=== PATIENT | male | born 1960 | race Caucasian/White ===

== ENCOUNTER 2024-01-25 21:38 | Inpatient (IN) | payer OTHER, SELFPAY ==
[2024-01-25 17:34] VITALS: BP 135/77
--- NOTE | 2024-01-25 17:52 | ED.GENMED ---
History of Present Illness
General
Chief Complaint: Breathing Problem
Source: patient
Time Seen by Provider: 01/25/24 17:37
History of Present Illness
History of Present Illness:
63-year-old male longtime smoker with history of asthma presents complaining of progressively worsening shortness of breath with fatigue and cough. He notes chills. No vomiting. No other complaints. Is 88% on EMS arrival and was brought here on
a nonrebreather. Denies any chest pain
Phy Exam
Physical Exam
Physical Exam:
General: Well-developed male with increased work of breathing HEENT: Normocephalic atraumatic neck is supple
Heart: Tachycardic but regular
Lungs: Diffuse inspiratory expiratory wheeze. Subtle rales at the bases.
Extremities: No cyanosis or edema
Abdomen soft nontender nondistended no guarding rebound
Scores
Heart Failure Risk
Heart Failure Risk Score: Not Applicable
Sepsis
Sepsis Screening
Sepsis Assessment: Sepsis
Sepsis Screen
Sepsis Screen: Sepsis
Date: 01/25/24
Time: 20:55
Course
Orders/Labs/Results
Orders:
Orders
01/25/24 17:48
0.9% Sodium Chloride 1000 ml [Nss] 1,000 ml IV BOLUS
Acetaminophen [Tylenol] 1,000 mg PO NOW STA
Ipratropium/Albuterol Sulfate [Duoneb] 3 ml INH R NOW STA
01/25/24 17:49
CR Chest - 2 Views Urgent
Comment:
Reason For Exam: cough, fever
01/25/24 18:07
Complete Blood Count/With Diff Urgent
Comprehensive Metabolic Panel Urgent
Blood Culture Q30M
JOVANI Source: Blood/Venous
Specimen Description:
Blood Culture Q30M
JOVANI Source: Blood/Venous
Specimen Description:
01/25/24 18:08
COVID-19 Antigen Urgent
Source: Nasal Swab
Lactic Acid Q4H
Comment: CANCEL 2nd LACTIC ACID IF 1st LACTIC ACID IS LESS THAN 2
Influenza A+B Rapid Molecular Urgent
JOVANI Source: Nasal Swab
Specimen Description:
01/25/24 20:50
Azithromycin 500 mg/250 ml [Zithromax Infusion] 500 mg in 250 ml IV NOW
CefTRIAXone [Rocephin] 1,000 mg IV NOW STA
Abnormal Lab Results
01/25/24
18:07
WBC 15.7 H 10^3/uL
(4.8-10.8)
Hgb 18.7 H g/dL
(13.0-18.0)
Hct 55.9 H %
(39.0-52.0)
MCH 31.4 H pg
(27.0-31.0)
Abs Immat Gran (auto) 0.1 H 10^3/uL
(0-0.05)
Absolute Neuts (auto) 13.3 H 10^3/uL
(1.4-6.5)
Absolute Lymphs (auto) 0.8 L 10^3/uL
(1.2-3.4)
Absolute Monos (auto) 1.5 H 10^3/uL
(0.1-0.6)
Neutrophils % 84.6 H %
(42.2-75.2)
Lymphocytes % 5.2 L %
(20.5-51.1)
Potassium 5.2 H mmol/L
(3.5-5.1)
Chloride 97 L mmol/L
(98-107)
Carbon Dioxide 32 H mmol/L
(22-30)
Glucose 123 H mg/dl
(70-99)
Total Bilirubin 2.0 H mg/dl
(0.2-1.3)
Total Protein 8.8 H g/dl
(6.3-8.2)
01/25/24 18:07
01/25/24 18:07
Vital Signs
Initial and Last Documented VS:
Initial Vital Signs
Temp Pulse Resp BP Pulse Ox
102.7 F H 117 20 135/77 90
01/25/24 17:34 01/25/24 17:34 01/25/24 17:34 01/25/24 17:34 01/25/24 17:34
Last Documented Vital Signs
Temp Pulse Resp BP Pulse Ox
102.7 F H 117 20 135/77 90
01/25/24 17:34 01/25/24 17:34 01/25/24 17:34 01/25/24 17:34 01/25/24 17:34
MDM/Problems Addressed
Differential Diagnosis Includes:
Respiratory difficulty. Patient is tachycardic and febrile at triage. Consider acute bronchitis versus COVID versus flu versus pneumonia versus sepsis
Tylenol ordered fluids ordered cultures and lactic acid pending. Will check chest x-ray COVID and flu test and labs. DuoNeb ordered as well
*Critical Care Note
Total Time (30-74mins, 75-104mins- exclusive of procedures): Not Applicable
Update Note
Update Note:
Chest x-ray concerning for right lower lobe pneumonia. Given leukocytosis, tachycardia fever and hypoxia will admit to hospital for sepsis secondary to pneumonia.
Fluids ordered Rocephin Zithromax ordered.
ED Attending Note
-
Portions of this chart may have been created with voice recognition software.� Occasional wrong word or��sound alike� substitutions may have occurred due to the inherent limitations of voice recognition software.
Discharge Plan
Departure
Patient Disposition: Admit
Date of Disposition: 01/25/24
Time of Disposition: 20:53
Admit to: Telemetry
Presentation/result/management discussed w/ accepting MD/DO: Hospitalist
Discharge Problem:
Sepsis, Pneumonia
Referrals:
UNKNOWN - PT DOES,NOT KNOW [Family Provider] -
Interventions
Interventions:
*Risk Screen - Suicide Last Done: 01/25/24 18:03
*General Assessment Last Done: 01/25/24 18:03
*Neglect/Abuse Screening Last Done: 01/25/24 18:03
ED- Fall Risk Assessment Last Done: 01/25/24 18:03
*ED COVID-19 Vaccine History Last Done: 01/25/24 18:03
ED- Cardiac Assessment Last Done: 01/25/24 18:03
ED- Pulmonary Assessment Last Done: 01/25/24 18:03
Discharge Date and Time
Print Language: MACEDONIAN
[2024-01-25] MEDS: TYLENOL 1000 MG PO (17:58)
[2024-01-25] MEDS: DUONEB 3 ML INH (17:59)
[2024-01-25] MEDS: NSS 1000 IV ×3 (18:02→23:18)
[2024-01-25 18:16] LABS: % Basophils 0.2 % (0-2); % Eosinophils 0.4 % (0-6); % Immature Granulocytes 0.4 % (0-0.5); % Lymphocytes 5.2 % (20.5-51.1); % Monocytes 9.2 % (1.7-9.3); % Neutrophils 84.6 % (42.2-75.2); Absolute Eosinophils 0.1 10^3/uL (0-0.7); Absolute Immature Granulocytes 0.1 10^3/uL (0-0.05); Absolute Lymphocytes 0.8 10^3/uL (1.2-3.4); Absolute Monocytes 1.5 10^3/uL (0.1-0.6); Absolute Neutrophils 13.3 10^3/uL (1.4-6.5); Hematocrit 55.9 % (39.0-52.0); Hemoglobin 18.7 g/dL (13.0-18.0); Mean Corp Hgb Conc. 33.5 g/dL (33.0-37.0); Mean Corpuscular Hgb 31.4 pg (27.0-31.0); Mean Corpuscular Volume 93.8 fL (80.0-94.0); Mean Platelet Volume 10.2 fL (7.4-10.4); Nucleated Red Blood Cells % 0 % (-); Platelet Count 199 10^3/uL (130-400); Red Blood Cell Count 5.96 10^6/uL (4.70-6.10); Red Cell Dist. Width 11.8 % (11.5-14.5); White Blood Cell Count 15.7 10^3/uL (4.8-10.8)
[2024-01-25 18:19] VITALS: BMI 25.0
[2024-01-25 18:28] LABS: Lactic Acid 1.6 mmol/L (0.7-2.0)
[2024-01-25 18:33] LABS: ALT (SGPT) 34 U/L (0-50); AST (SGOT) 37 U/L (17-59); Albumin 4.8 g/dl (3.5-5.0); Alkaline Phosphatase 83 U/L (38-126); Blood Urea Nitrogen 16 mg/dl (9-20); Calcium 9.9 mg/dl (8.4-10.2); Carbon Dioxide 32 mmol/L (22-30); Chloride 97 mmol/L (98-107); Estimated Creatinine Clearance 102 ml/min; Glucose 123 mg/dl (70-99); Potassium 5.2 mmol/L (3.5-5.1); Sodium 137 mmol/L (135-145); Total Protein 8.8 g/dl (6.3-8.2); eGFR > 60.00
[2024-01-25 18:33] LABS: COVID-19 Antigen Negative (Negative)
[2024-01-25 19:00] VITALS: BP 123/99
[2024-01-25 20:00] VITALS: BP 124/76
[2024-01-25 21:00] VITALS: BP 130/74
[2024-01-25] MEDS: ROCEPHIN 1000 MG IV (21:06)
[2024-01-25] MEDS: ZITHROMAX INFUSION 250 IV (21:17)
--- NOTE | 2024-01-25 21:27 | EDRN ---
Pt says he smoked 1 ppd for 40 years. Pt diagnosed with COPD in August. Pt's was recently ill with URI. Pt says he has 'felt like crap' for couple days. Pt is always sob but notes it has gotten worse in past couple days. Pt with cough
productive of green mucus. Pt does not wear O2 at home. Pt has felt chilled. No cp, abd pain, n/v, urinary symptoms, weakness, dizziness. Prior to this RN's assessment and him going to [facility], pt's IV site reportedly infiltrated. Elier Amaro NP
removed IV and applied pressure dressing. Pt noted with approximately 5 dressings on both arms. Pt said he had to be stuck multiple times and two of the IVs stopped working and had to be removed. This RN inserted #20g R wrist without difficulty
and remaining NS bolus from initial order reconnected and finished at 2115.
--- NOTE | 2024-01-25 21:35 | HPS.HSE ---
Family Physician
-
Family Physician: NOT KNOW UNKNOWN - PT DOES
Chief Complaint
-
shortness of breath
History of Present Illness
63-year-old male past medical history of COPD, current smoker, BPH, presenting with worsening shortness of breath with productive cough, over the past few days. He has fevers and chills. Denies sore throat or runny nose. Denies chest pain.
Denies nausea or vomiting or diarrhea. His had similar symptoms and has improved.
Patient smoked for 40 years and continues to smoke 1 pack of cigarettes per day. He denies alcohol use.
Medical History
Past Medical History
Past Medical History: Reports Other (COPD, current smoker, BPH )
Past Surgical History: Reports None
Social History
Tobacco: Smoker
Alcohol: None
Drug: None
Family History
Family History: Not pertinent
Allergies / Home Medications
Allergies reflects when Allergies were last updated in [facility].
Home Medications with original date entered in [facility]
Allergy/Medication List:
Allergies
Allergy/AdvReac Type Severity Reaction Status Date / Time
aspirin AdvReac Unknown Vomiting Verified 01/25/24 17:34
Home Medications
Trelegy Ellipta 1 puff inhalation DAILY 01/25/24
fexofenadine-pseudoephedrine ER 180 mg-240 mg tablet,ext.release 24 hr (Latesha-D 24 Hour) 1 tab PO DAILY 01/25/24
tamsulosin 0.4 mg capsule (Flomax) 0.4 mg PO DAILY 01/25/24
Review of Systems
-
History Source: Patient
A 12 point ROS was completed and negative except as noted: Yes
Constitutional: Reports No Symptoms
EENT: Reports No Symptoms
Respiratory: Reports See HPI
Cardiac: Reports No Symptoms
Abdomen/GI: Reports No Symptoms
: Reports No Symptoms
Musculoskeletal: Reports No Symptoms
Skin: Reports No Symptoms
Neurological: Reports No Symptoms
Endocrine: Reports No Symptoms
Hematologic/Lymphatic: Reports No Symptoms
Psych: Reports No Symptoms
Physical Exam
Vital Signs
Vital Signs
Temp Pulse Resp BP Pulse Ox
100 F 102 14 130/74 92
01/25/24 20:57 01/25/24 21:00 01/25/24 21:00 01/25/24 21:00 01/25/24 21:00
Physical Exam
General: Well Developed, Well Nourished and No Apparent Distress
HEENT: NormoCephalic, Moist mucous membranes and Atraumatic
Respiratory: Wheezes and Rhonchi
Cardiac: S1/S2 and Regular Rhythm; No Murmur or Rub
GI: Soft, Non Tender, Non Distended and Normal Bowel Sounds; No Organomegaly
Rectal: Deferred by Provider
Musculoskeletal: No Clubbing, No Cyanosis and No Edema
Skin: No Rash
Neuro: Nonfocal/grossly intact
Laboratory Results
-
01/25/24 18:07
01/25/24 18:07
Laboratory Results
Lactic Acid Cancelled 01/25/24 22:00
Total Bilirubin 2.0 mg/dl (0.2-1.3) H 01/25/24 18:07
AST 37 U/L (17-59) 01/25/24 18:07
ALT 34 U/L (0-50) 01/25/24 18:07
Alkaline Phosphatase 83 U/L (38-126) 01/25/24 18:07
Data Reviewed
-
Lab Data: Labs Reviewed by me
Old Records: Reviewed
Impression/Plan
-
IMPRESSION:
PLAN:
# Sepsis (leukocytosis, fever, tachycardia, tachypnea) secondary to right lower lobe pneumonia
-COVID and influenza negative
-Blood cultures pending
-Check sputum culture
-IV fluids
-Ceftriaxone/azithromycin
# Acute COPD exacerbation
-Bilateral wheezing, rhonchi on examination
-DuoNebs every 6 hours
-Dexamethasone 4 mg every 12
-mucinex
-hold trelegy ellipta
# Hyperkalemia likely secondary to hypovolemia
-Monitor with IV fluids
Current smoker
-Nicotine patch
BPH
-Continue tamsulosin
Full code
DVT prophylaxis�heparin
Regular diet
[2024-01-25 22:30] VITALS: BP 142/82; BMI 25.0
[2024-01-25] MEDS: MORPHINE SULFATE 2 MG IV (23:13)
[2024-01-25] MEDS: DECADRON 4 MG IV (23:14)
[2024-01-26 03:44] VITALS: BP 129/69
[2024-01-26 07:18] VITALS: BP 129/87
[2024-01-26] MEDS: DUONEB 3 ML INH ×4 (07:25→19:04)
[2024-01-26 07:45] LABS: % Basophils 0.1 % (0-2); % Immature Granulocytes 0.6 % (0-0.5); % Lymphocytes 4.2 % (20.5-51.1); % Monocytes 4.2 % (1.7-9.3); % Neutrophils 90.9 % (42.2-75.2); Absolute Immature Granulocytes 0.1 10^3/uL (0-0.05); Absolute Lymphocytes 0.9 10^3/uL (1.2-3.4); Absolute Monocytes 0.9 10^3/uL (0.1-0.6); Absolute Neutrophils 18.7 10^3/uL (1.4-6.5); Hematocrit 49.8 % (39.0-52.0); Hemoglobin 16.4 g/dL (13.0-18.0); Mean Corp Hgb Conc. 32.9 g/dL (33.0-37.0); Mean Corpuscular Hgb 31.2 pg (27.0-31.0); Mean Corpuscular Volume 94.9 fL (80.0-94.0); Mean Platelet Volume 10.4 fL (7.4-10.4); Nucleated Red Blood Cells % 0 % (-); Platelet Count 196 10^3/uL (130-400); Red Blood Cell Count 5.25 10^6/uL (4.70-6.10); Red Cell Dist. Width 11.8 % (11.5-14.5); White Blood Cell Count 20.6 10^3/uL (4.8-10.8)
[2024-01-26 08:10] LABS: Blood Urea Nitrogen 14 mg/dl (9-20); Calcium 8.9 mg/dl (8.4-10.2); Carbon Dioxide 28 mmol/L (22-30); Chloride 103 mmol/L (98-107); Estimated Creatinine Clearance 117 ml/min; Glucose 130 mg/dl (70-99); Potassium 4.8 mmol/L (3.5-5.1); Sodium 140 mmol/L (135-145); eGFR > 60.00
[2024-01-26] MEDS: FLOMAX 0.4 MG PO (08:30)
[2024-01-26] MEDS: CLARITIN 10 MG PO (08:30)
[2024-01-26] MEDS: MUCINEX 1200 MG PO ×2 (08:30→20:44)
[2024-01-26] MEDS: HEPARIN 5000 UNITS SC (08:30)
[2024-01-26] MEDS: SUDAFED 12 HOUR (EXTENDED RELEASE) 240 MG PO (08:31)
[2024-01-26] MEDS: NICODERM TRANSDERMAL 14 MG TRANSDERM (08:31)
[2024-01-26] MEDS: NSS 1000 IV (08:32)
[2024-01-26 10:59] VITALS: BP 127/83
[2024-01-26] MEDS: DECADRON 4 MG IV (11:10)
[2024-01-26] MEDS: ZITHROMAX 500 MG PO (11:10)
--- NOTE | 2024-01-26 11:19 | W.PN.HOSP.TC ---
Today's Communication/Plan
-
Increase steroids
Continue with antibiotic
Follow-up on the culture data
DC fluids
Assessment / Plan
Assessment / Plan
# Sepsis (leukocytosis, fever, tachycardia, tachypnea) secondary to right lower lobe pneumonia
-COVID and influenza negative
-Blood cultures pending
-Check sputum culture in lab
-DC IVF.
-Ceftriaxone/azithromycin
# Acute suspected COPD exacerbation
-DuoNebs every 6 hours
-Dexamethasone 6 mg every 12
-mucinex
-hold trelegy ellipta
# Acute hypoxic respiratory insufficiency likely combination of pneumonia and suspected COPD exacerbation
-Wean oxygen as tolerated. Needs treatment plan as above.
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
# Hyperkalemia
-resolved
#Daily tobacco abuse
#Active Smoker 1 pack a day
-Nicotine patch
-Counseled on complete cessation. Patient said he will stop smoking moving forward.
BPH
-Continue tamsulosin
Full code
DVT prophylaxis�lovenox
Anticipated Discharge: > 48 hours
Subjective/Interval History
-
Date of Service: January 26, 2024
states feels sob
remains with severe cough
Objective Data
-
Labs:
Laboratory Results
01/26/24
07:04
WBC 20.6 H
Hgb 16.4
Hct 49.8
Plt Count 196
Sodium 140
Potassium 4.8
Chloride 103
Carbon Dioxide 28
BUN 14
Creatinine 0.7
Glucose 130 H
Calcium 8.9
Vital Signs:
Vital Signs
Temp Pulse Resp BP Pulse Ox
97.9 F 100 17 127/83 93
01/26/24 10:59 01/26/24 10:59 01/26/24 10:59 01/26/24 10:59 01/26/24 10:59
I&O
01/25/24 01/26/24 01/27/24
06:59 06:59 06:59
Intake Total 480 / 480
Output Total 200 / 200
Balance 280 / 280
Physical Exam
-
General: Well Developed and No Apparent Distress
HEENT: Normocephalic, Atraumatic and Moist Mucous Membranes
Respiratory: Wheezes
Cardiac: Regular Rhythm and S1/S2; Negative Murmur, Rub or Gallop
GI: Soft, Nontender, Nondistended and Normal Bowel Sounds; Negative Organomegaly
Rectal: Deferred by Provider
Musculoskeletal: No Clubbing, No Cyanosis and No Edema
Skin: Negative Rash
Neuro: Awake, Alert, Oriented, AO x 3, No Motor Deficits and Nonfocal/Grossly Intact
Psych: Calm
Data Reviewed
-
Total Time Spent with Patient (in minutes): 55
[2024-01-26] MEDS: DECADRON IV (11:57)
--- NOTE | 2024-01-26 13:52 | CM ---
Patient seen at bedside with
IA completed.
CM contacted [facility] who states [facility] & was verified.
Dx: Sepsis, pneumonia, COPD exac
PMH: COPD, 1PPD smoker x 40 yrs, BPH
Patient lives in a multistory home with .
PLOF: Independent, does not use AD
DME: Denies
Denies insecurities
Denies HH/Rehab
[facility] - [facility] left [facility]
PLAN: Home, currently no needs anticipated
[2024-01-26 15:31] VITALS: BP 114/72
[2024-01-26 19:37] VITALS: BP 132/66
[2024-01-26] MEDS: ROCEPHIN 1000 MG IV (20:42)
[2024-01-26] MEDS: HEPARIN SC (20:43)
[2024-01-26] MEDS: STERILE WATER FOR INJECTION 10 ML IV (20:44)
[2024-01-26] MEDS: DECADRON 6 MG IV (23:24)
[2024-01-26 23:39] VITALS: BP 119/57
[2024-01-27 03:47] VITALS: BP 130/76
[2024-01-27 07:00] VITALS: BP 136/89
[2024-01-27 07:32] LABS: % Immature Granulocytes 0.6 % (0-0.5); % Lymphocytes 4.8 % (20.5-51.1); % Monocytes 2.9 % (1.7-9.3); % Neutrophils 91.7 % (42.2-75.2); Absolute Immature Granulocytes 0.1 10^3/uL (0-0.05); Absolute Monocytes 0.6 10^3/uL (0.1-0.6); Absolute Neutrophils 18.8 10^3/uL (1.4-6.5); Hematocrit 44.6 % (39.0-52.0); Hemoglobin 15.5 g/dL (13.0-18.0); Mean Corp Hgb Conc. 34.8 g/dL (33.0-37.0); Mean Corpuscular Hgb 31.5 pg (27.0-31.0); Mean Corpuscular Volume 90.7 fL (80.0-94.0); Mean Platelet Volume 10.7 fL (7.4-10.4); Nucleated Red Blood Cells % 0 % (-); Platelet Count 190 10^3/uL (130-400); Red Blood Cell Count 4.92 10^6/uL (4.70-6.10); Red Cell Dist. Width 11.9 % (11.5-14.5); White Blood Cell Count 20.5 10^3/uL (4.8-10.8)
[2024-01-27] MEDS: DUONEB 3 ML INH ×4 (07:38→19:48)
[2024-01-27 07:50] LABS: Blood Urea Nitrogen 16 mg/dl (9-20); Calcium 9.4 mg/dl (8.4-10.2); Carbon Dioxide 26 mmol/L (22-30); Chloride 107 mmol/L (98-107); Estimated Creatinine Clearance 117 ml/min; Glucose 128 mg/dl (70-99); Potassium 4.1 mmol/L (3.5-5.1); Sodium 143 mmol/L (135-145); eGFR > 60.00
[2024-01-27] MEDS: ZITHROMAX 500 MG PO (08:23)
[2024-01-27] MEDS: CLARITIN 10 MG PO (08:23)
[2024-01-27] MEDS: FLOMAX 0.4 MG PO (08:23)
[2024-01-27] MEDS: MUCINEX 1200 MG PO ×2 (08:23→19:59)
[2024-01-27] MEDS: NICODERM TRANSDERMAL TRANSDERM (08:26)
[2024-01-27] MEDS: HEPARIN SC (08:26)
[2024-01-27 11:00] VITALS: BP 148/91
--- NOTE | 2024-01-27 11:47 | W.PN.HOSP.TC ---
Today's Communication/Plan
-
cont with IV steroids
Cont with IV abx
BC
Wean o2
if no improvement can consider pulm eval
Assessment / Plan
Assessment / Plan
General: Well Developed and No Apparent Distress
HEENT: Normocephalic, Atraumatic and Moist Mucous Membranes
Respiratory: Wheezes b/l exp, oxygen
Cardiac: Regular Rhythm and S1/S2; Negative Murmur, Rub or Gallop
GI: Soft, Nontender, Nondistended and Normal Bowel Sounds; Negative Organomegaly
Musculoskeletal: No Clubbing, No Cyanosis and No Edema
Skin: Negative Rash
Neuro: Awake, Alert, Oriented, AO x 3, No Motor Deficits and Nonfocal/Grossly Intact
Psych: Calm
# Sepsis (leukocytosis, fever, tachycardia, tachypnea) secondary to right lower lobe pneumonia
-COVID and influenza negative
-Blood cultures neg so far
-Check sputum culture in lab -usual margaret
-DC IVF.
-Ceftriaxone/azithromycin
-repeat CXR in 4-6 week to assess for resolution
# Acute suspected COPD exacerbation
-DuoNebs every 6 hours
-Dexamethasone 6 mg every 12
-mucinex
-hold trelegy ellipta
# Acute hypoxic respiratory insufficiency likely combination of pneumonia and suspected COPD exacerbation
-Wean oxygen as tolerated. see individual treatment plan as above.
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
# Hyperkalemia
-resolved
#Daily tobacco abuse
#Active Smoker 1 pack a day
-Nicotine patch
-Counseled on complete cessation. Patient said he will stop smoking moving forward.
BPH
-Continue tamsulosin
Full code
DVT prophylaxis�lovenox
Anticipated Discharge: > 48 hours
Subjective/Interval History
-
Date of Service: January 27, 2024
states still feeling sob with exertion
having cough after nebs
Objective Data
-
Labs:
Laboratory Results
01/27/24
06:47
WBC 20.5 H
Hgb 15.5
Hct 44.6
Plt Count 190
Sodium 143
Potassium 4.1
Chloride 107
Carbon Dioxide 26
BUN 16
Creatinine 0.7
Glucose 128 H
Calcium 9.4
Vital Signs:
Vital Signs
Temp Pulse Resp BP Pulse Ox
98.1 F 115 18 148/91 95
01/27/24 11:00 01/27/24 11:40 01/27/24 11:40 01/27/24 11:00 01/27/24 11:40
I&O
01/26/24 01/27/24 01/28/24
06:59 06:59 06:59
Intake Total 480 / 480 1620 / 1620
Output Total 200 / 200
Balance 280 / 280 1620 / 1620
Data Reviewed
-
Total Time Spent with Patient (in minutes): 55
--- NOTE | 2024-01-27 12:43 | CM ---
Patient chart reviewed.
IV abx, IV steroids
Per nursing on 02
PLAN: home, currently no needs anticipated
[2024-01-27] MEDS: DECADRON 6 MG IV ×2 (13:09→23:55)
[2024-01-27 15:05] VITALS: BP 146/90
--- NOTE | 2024-01-27 18:41 | PTCARENOTE ---
pt refusing Levonox and Heparin, DR Omer made aware.
[2024-01-27 19:28] VITALS: BP 141/83
[2024-01-27] MEDS: ROCEPHIN 1000 MG IV (20:00)
[2024-01-27] MEDS: STERILE WATER FOR INJECTION 10 ML IV (20:00)
[2024-01-27 23:14] VITALS: BP 123/81
[2024-01-28 03:36] VITALS: BP 145/90
[2024-01-28 07:00] VITALS: BP 152/94
[2024-01-28] MEDS: DUONEB 3 ML INH ×4 (07:28→20:12)
[2024-01-28] MEDS: CLARITIN 10 MG PO (07:58)
[2024-01-28] MEDS: NICODERM TRANSDERMAL 14 MG TRANSDERM (07:58)
[2024-01-28] MEDS: FLOMAX 0.4 MG PO (07:58)
[2024-01-28] MEDS: MUCINEX 1200 MG PO ×2 (07:58→19:45)
[2024-01-28] MEDS: ZITHROMAX 500 MG PO (07:58)
[2024-01-28 08:36] LABS: % Basophils 0.1 % (0-2); % Immature Granulocytes 0.5 % (0-0.5); % Lymphocytes 4.6 % (20.5-51.1); % Monocytes 2.6 % (1.7-9.3); % Neutrophils 92.2 % (42.2-75.2); Absolute Immature Granulocytes 0.1 10^3/uL (0-0.05); Absolute Lymphocytes 0.9 10^3/uL (1.2-3.4); Absolute Monocytes 0.5 10^3/uL (0.1-0.6); Absolute Neutrophils 17.1 10^3/uL (1.4-6.5); Hematocrit 47.9 % (39.0-52.0); Hemoglobin 16.3 g/dL (13.0-18.0); Mean Corpuscular Hgb 31.6 pg (27.0-31.0); Mean Corpuscular Volume 92.8 fL (80.0-94.0); Mean Platelet Volume 10.7 fL (7.4-10.4); Nucleated Red Blood Cells % 0 % (-); Platelet Count 235 10^3/uL (130-400); Red Blood Cell Count 5.16 10^6/uL (4.70-6.10); Red Cell Dist. Width 11.9 % (11.5-14.5); White Blood Cell Count 18.5 10^3/uL (4.8-10.8)
[2024-01-28 11:00] VITALS: BP 140/83
--- NOTE | 2024-01-28 11:05 | W.PN.HOSP.TC ---
Today's Communication/Plan
-
Continue antibiotic
Continue with steroids
Continue with bronchodilators
Check CT chest
Assessment / Plan
Assessment / Plan
General: Well Developed and No Apparent Distress
HEENT: Normocephalic, Atraumatic and Moist Mucous Membranes
Respiratory: Wheezes b/l exp, oxygen improving- oxygen
Cardiac: Regular Rhythm and S1/S2; Negative Murmur, Rub or Gallop
GI: Soft, Nontender, Nondistended and Normal Bowel Sounds; Negative Organomegaly
Musculoskeletal: No Clubbing, No Cyanosis and No Edema
Skin: Negative Rash
Neuro: Awake, Alert, Oriented, AO x 3, No Motor Deficits and Nonfocal/Grossly Intact
Psych: Calm
# Sepsis (leukocytosis, fever, tachycardia, tachypnea) secondary to right lower lobe pneumonia
-COVID and influenza negative
-Blood cultures neg so far
-Check sputum culture in lab -usual margaret
-DC IVF.
-Ceftriaxone/azithromycin
-repeat CXR in 4-6 week to assess for resolution
# Acute suspected COPD exacerbation
-DuoNebs every 6 hours
-Dexamethasone 6 mg every 12-can probably de-escalate next 24 hours
-mucinex
-hold trelegy ellipta
# Acute hypoxic respiratory insufficiency likely combination of pneumonia and suspected COPD exacerbation
-Wean oxygen as tolerated. see individual treatment plan as above.
-Check CT PE study with tachycardia persistent and shortness of breath
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
# Hyperkalemia
-resolved
#Daily tobacco abuse
#Active Smoker 1 pack a day
-Nicotine patch
-Counseled on complete cessation. Patient said he will stop smoking moving forward.
BPH
-Continue tamsulosin
Full code
DVT prophylaxis�lovenox
Anticipated Discharge: 24 - 48 hours
Subjective/Interval History
-
Date of Service: January 28, 2024
Patient with tachycardia
States of productive cough
Remains on oxygen
Objective Data
-
Labs:
Laboratory Results
01/28/24 01/28/24
06:49 09:53
WBC 18.5 H
Hgb 16.3
Hct 47.9
Plt Count 235 D
Sodium Cancelled Pending
Potassium Cancelled Pending
Chloride Cancelled Pending
Carbon Dioxide Cancelled Pending
BUN Cancelled Pending
Creatinine Cancelled Pending
Glucose Cancelled Pending
Calcium Cancelled Pending
Vital Signs:
Vital Signs
Temp Pulse Resp BP Pulse Ox
97.3 F 108 18 152/94 100
01/28/24 07:00 01/28/24 07:30 01/28/24 07:30 01/28/24 07:00 01/28/24 08:31
I&O
01/27/24 01/28/24 01/29/24
06:59 06:59 06:59
Intake Total 1620 / 1620 1420 / 1420
Balance 1620 / 1620 1420 / 1420
Data Reviewed
-
Total Time Spent with Patient (in minutes): 56
[2024-01-28 11:24] LABS: Blood Urea Nitrogen 19 mg/dl (9-20); Calcium 9.8 mg/dl (8.4-10.2); Carbon Dioxide 30 mmol/L (22-30); Chloride 103 mmol/L (98-107); Estimated Creatinine Clearance 117 ml/min; Glucose 153 mg/dl (70-99); Potassium 3.9 mmol/L (3.5-5.1); Sodium 141 mmol/L (135-145); eGFR > 60.00
[2024-01-28] MEDS: DECADRON 6 MG IV (11:41)
--- NOTE | 2024-01-28 13:34 | W.PN.UPDATE ---
Update Note
Progress Note Update
Patient underwent CT chest PE study which by radiology suspected pulmonary embolism versus artifact in the proximal portion of the left lower lobe pulmonary artery. This was relayed to the patient
Discussed with radiology recommend repeat CT chest after IV hydration
Patient agreeable to take Lovenox injections. Start 80mg every 12
Will ask pulmonary input
--- NOTE | 2024-01-28 13:46 | CM ---
Patient seen at bedside.
CT scan chest PE study today
Pulmonary consult
Cont on 2L 02
PLAN: home, CM to follow for needs
will transport
[2024-01-28] MEDS: NSS 1000 IV (13:49)
[2024-01-28] MEDS: LOVENOX 80 MG SC (13:49)
[2024-01-28 15:04] VITALS: BP 132/86
[2024-01-28 19:27] VITALS: BP 147/85
[2024-01-28] MEDS: ROCEPHIN 1000 MG IV (19:46)
[2024-01-28] MEDS: STERILE WATER FOR INJECTION 10 ML IV (19:46)
[2024-01-28] MEDS: MELATONIN 3 MG PO (22:07)
[2024-01-28 23:08] VITALS: BP 129/76
[2024-01-29] VITALS (7 sets, daily range): BP systolic 141–154; BP diastolic 81–98
[2024-01-29] MEDS: NSS 1000 IV ×2 (00:32→12:48)
[2024-01-29] MEDS: DECADRON 6 MG IV (00:33)
[2024-01-29] MEDS: LOVENOX 80 MG SC (01:52)
[2024-01-29] MEDS: DUONEB 3 ML INH ×4 (07:41→19:56)
[2024-01-29] MEDS: ZITHROMAX 500 MG PO (08:16)
[2024-01-29] MEDS: CLARITIN 10 MG PO (08:16)
[2024-01-29] MEDS: FLOMAX 0.4 MG PO (08:16)
[2024-01-29] MEDS: NICODERM TRANSDERMAL 14 MG TRANSDERM (08:17)
[2024-01-29] MEDS: MUCINEX 1200 MG PO ×2 (08:17→19:42)
[2024-01-29 08:37] LABS: % Basophils 0.1 % (0-2); % Immature Granulocytes 0.8 % (0-0.5); % Lymphocytes 7.4 % (20.5-51.1); % Monocytes 3.2 % (1.7-9.3); % Neutrophils 88.5 % (42.2-75.2); Absolute Immature Granulocytes 0.1 10^3/uL (0-0.05); Absolute Monocytes 0.4 10^3/uL (0.1-0.6); Absolute Neutrophils 11.5 10^3/uL (1.4-6.5); Hematocrit 44.8 % (39.0-52.0); Hemoglobin 15.2 g/dL (13.0-18.0); Mean Corp Hgb Conc. 33.9 g/dL (33.0-37.0); Mean Corpuscular Hgb 31.5 pg (27.0-31.0); Mean Corpuscular Volume 92.8 fL (80.0-94.0); Mean Platelet Volume 10.7 fL (7.4-10.4); Nucleated Red Blood Cells % 0 % (-); Platelet Count 223 10^3/uL (130-400); Red Blood Cell Count 4.83 10^6/uL (4.70-6.10); Red Cell Dist. Width 11.8 % (11.5-14.5)
[2024-01-29 09:30] LABS: Blood Urea Nitrogen 18 mg/dl (9-20); Calcium 9.4 mg/dl (8.4-10.2); Carbon Dioxide 25 mmol/L (22-30); Chloride 106 mmol/L (98-107); Estimated Creatinine Clearance > 125 ml/min; Glucose 110 mg/dl (70-99); Potassium 4.4 mmol/L (3.5-5.1); Sodium 139 mmol/L (135-145); eGFR > 60.00
--- NOTE | 2024-01-29 10:15 | W.PN.HOSP.TC ---
Today's Communication/Plan
-
IV steroids
IV abx
IVF
Pulm eval
wean o2
will require home o2 eval prior to dc
Assessment / Plan
Assessment / Plan
General: Well Developed and No Apparent Distress
HEENT: Normocephalic, Atraumatic and Moist Mucous Membranes
Respiratory: Wheezes b/l exp, oxygen improving- oxygen
Cardiac: Regular Rhythm and S1/S2; Negative Murmur, Rub or Gallop
GI: Soft, Nontender, Nondistended and Normal Bowel Sounds; Negative Organomegaly
Musculoskeletal: No Clubbing, No Cyanosis and No Edema
Skin: Negative Rash
Neuro: Awake, Alert, Oriented, AO x 3, No Motor Deficits and Nonfocal/Grossly Intact
Psych: Calm
# Sepsis (leukocytosis, fever, tachycardia, tachypnea) secondary to right lower lobe pneumonia
-COVID and influenza negative
-Blood cultures neg so far
-Check sputum culture in lab -usual margaret
-DC IVF.
-Ceftriaxone/azithromycin complete 5d course
-repeat CXR in 4-6 week to assess for resolution
# Acute suspected COPD exacerbation
-DuoNebs every 6 hours
-Dexamethasone dose decreased further to 4mg q12h
-mucinex
-hold trelegy ellipta
-Pulm eval- would benefit from close pulmonary follow up on discharge. Patient verbalized understanding
# Acute hypoxic respiratory insufficiency likely combination of pneumonia and suspected COPD exacerbation
-Wean oxygen as tolerated. see individual treatment plan as above.
#Suspected PE LLL vs. artifact
-d/w with radiology recommending repeat CT chest.
-started on prophylactic Lovenox therapeutic dose
-IVF started
-repeat CT chest later today vs. tomm.
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
# Hyperkalemia
-resolved
#Daily tobacco abuse
#Active Smoker 1 pack a day
-Nicotine patch
-Counseled on complete cessation. Patient said he will stop smoking moving forward.
BPH
-Continue tamsulosin
Full code
DVT prophylaxis�lovenox
Anticipated Discharge: Within 24 hours
Subjective/Interval History
-
Date of Service: January 29, 2024
remains on oxygen
states sob is starting to improve
Objective Data
-
Labs:
Laboratory Results
01/29/24
07:25
WBC 13.0 H
Hgb 15.2
Hct 44.8
Plt Count 223
Sodium 139
Potassium 4.4
Chloride 106
Carbon Dioxide 25
BUN 18
Creatinine 0.6 L
Glucose 110 H
Calcium 9.4
Vital Signs:
Vital Signs
Temp Pulse Resp BP Pulse Ox
97.9 F 104 18 141/95 93
01/29/24 07:40 01/29/24 07:43 01/29/24 07:43 01/29/24 07:40 01/29/24 08:00
I&O
01/28/24 01/29/24 01/30/24
06:59 06:59 06:59
Intake Total 1420 / 1420 2160 / 2160
Balance 1420 / 1420 2160 / 2160
Data Reviewed
-
Total Time Spent with Patient (in minutes): 55
--- NOTE | 2024-01-29 10:22 | CON.PUL ---
Consultation
Consultation Request
Date/Time Consultation Requested: 01/29/2024-8 AM
Date/Time Consultation Performed: 01/29/2024-8:30 AM
Requesting Provider: Hospitalist
Performing Provider: Dr. Noriega
Reason for Consultation: Shortness of breath
Medical History
-
Chief Complaint: Shortness of breath, pneumonia, possible pulm embolism
History of Present Illness:
63-year-old smoking male with a history of probable COPD as well as BPH who presented with increasing shortness of breath, productive cough, fevers and chills found to have pneumonia and CT chest shows possible pulmonary embolism as well-pulmonary
was consulted for pneumonia, cigarette smoking, possible pulmonary embolism 01/29/2024. Patient states that he has been smoking till nearly his admission. He has quit intermittently throughout the years but is over a pack a day smoker. He
developed fevers, chills, chest congestion, productive cough and increased wheezing and shortness of breath. He came to the emergency room was found to have pneumonia. He is feeling improved. Sputum production has decreased. Color is lightened
as well on the mucus. Does not complain of any hemoptysis, pleurisy, and his dyspnea on exertion has improved. He continues to be on oxygen. He denies any abdominal pain, nausea, leg swelling or focal weakness.
Past Medical History
Past Medical History: None (Cigarette smoker. COPD-on Trelegy by primary. BPH.)
Social History
Tobacco: Smoker (02-hlva-fjsb smoker-ongoing)
Alcohol: None
Drug: None
Living: With Family
Occupational Exposures: No known asbestos exposure
Environmental Exposures: No known tuberculosis exposure
Family History
Family History: Reviewed & Not Pertinent
Allergies / Home Medications
Allergies
Allergy/AdvReac Type Severity Reaction Status Date / Time
aspirin Allergy Vomiting Verified 01/28/24 20:17
Home Medications
�Medication �Instructions �Recorded �Confirmed �Last Taken �Type
Trelegy Ellipta 1 puff inhalation DAILY 01/25/24 01/25/24 Unknown History
Lung/Breathing Issues
fexofenadine-pseudoephedrine ER 1 tab PO DAILY Congestion 01/25/24 01/25/24 Unknown History
180 mg-240 mg tablet,ext.release
24 hr (Latesha-D 24 Hour)
tamsulosin 0.4 mg capsule (Flomax) 0.4 mg PO DAILY Urinary Issue 01/25/24 01/25/24 Unknown History
Review of Systems
-
Unable to Obtain full review of systems at this time due to: Other (Per HPI)
Vitals / Labs / Diagnostic Testing
Vital Signs
Temp Pulse Resp BP Pulse Ox
97.9 F 104 18 141/95 93
01/29/24 07:40 01/29/24 07:43 01/29/24 07:43 01/29/24 07:40 01/29/24 08:00
Lab Data
01/29/24 07:25
01/29/24 07:25
Microbiology
01/25/24 18:07 Blood/Venous Blood Culture - Preliminary
No Growth in 72 hours- Final report to follow
01/25/24 18:07 Blood/Venous Blood Culture - Preliminary
No Growth in 72 hours- Final report to follow
01/26/24 08:48 Sputum Respiratory Culture - Final
Usual Respiratory Margaret
01/26/24 08:48 Sputum Gram Stain - Final
Diagnostic Testing:
Physical Exam
-
Exam:
Well-nourished and well-developed in no apparent distress
HEENT-atraumatic, normocephalic
Neck-supple, no JVD, no bruit
Heart-regular rate and rhythm-no murmurs, rubs or gallops
Chest with diminished breath sounds, prolonged expiratory time, no crackles but forced mid to end expiratory wheezes
Back without tenderness
Abdomen-soft, nontender, nondistended, no hepatosplenomegaly
Extremities-no cyanosis, clubbing, edema and good peripheral pulses
Integument-intact, no rashes, lesions or ecchymosis
Neurology-alert and oriented, nonfocal motor and sensory exam
Assessment
-
63-year-old smoking male with a history of probable COPD as well as BPH who presented with increasing shortness of breath, productive cough, fevers and chills found to have pneumonia and CT chest shows possible pulmonary embolism as well-pulmonary
was consulted for pneumonia, cigarette smoking, possible pulmonary embolism 01/29/2024.
Ghueokhfl-noqisxawn-gqfiiutr
COPD with acute exacerbation
Possible left lower lobe pulm embolism-suspect artifact-low clinical suspicion-repeat CT chest pending
Polycythemia-initial hemoglobin 18.7-with hydration 16.4
Hyperkalemia
Leukocytosis
Mild hyperglycemia
Conditions present prior to admission:
Cigarette smoker.
COPD-on Trelegy by primary.
BPH.
Plan
Respiratory decompensation likely due to underlying COPD with subsequent community-acquired pneumonia
CT chest reviewed-suspect artifact-historically low clinical suspicion
Repeat CT chest to ensure there is no clot versus obtaining D-dimer and if negative no CT chest is required
Supplemental oxygen as needed
Assess discharge supplemental oxygen needs-told patient he might require oxygen temporarily at the time of discharge
Incentive spirometry
Mucolytics
Aspiration precautions
Check cultures
Sputum culture 01/26/2024-usual respiratory margaret
Influenza negative
Empiric antibiotics-ceftriaxone and azithromycin-finite course
Follow radiographically
Follow leukocytosis
Follow hemoglobin
If polycythemia persists further workup for primary versus secondary could ensue in the outpatient setting
Monitor blood sugar
Insulin supplementation as needed
Smoking cessation counseling provided and will be ongoing
Nicotine patch
DVT prophylaxis-currently on Lovenox 1 mg/kg every 12 hours-convert to 40 mg daily if pulm embolism is ruled out
Nutrition
Early mobilization
Outpatient pulmonary iyjvsc-ao-vyrsoczn need for yearly low-dose lung cancer screening CT, PFTs, inhaler management and ongoing smoking cessation counseling
Diagnostic data:
Chest x-ray 01/25/2024-right lower lobe pneumonia
CT chest 01/28/2024-suspected left lower lobe pulmonary artery embolism versus artifact, patchy areas of interstitial airway disease suggesting pneumonia in the right middle lobe and right lower lobe,
Data Reviewed
-
EKG: Report reviewed by me
Radiology: Image personally visualized and interpreted and Report reviewed by me
CT Scan: Image personally visualized and interpreted and Report reviewed by me
Labs: Labs reviewed by me
Old Records: Reviewed
Total Time Spent with Patient (in minutes): 65
--- NOTE | 2024-01-29 11:41 | CM ---
Patient seen at bedside.
02 2L n/c-per note may need home 02 assessment prior to d/c
Pulmonary consulted
PLAN: home, CM to continue to follow for needs.
[2024-01-29] MEDS: DECADRON 4 MG IV ×2 (12:47→23:21)
[2024-01-29] MEDS: LOVENOX 40 MG SC (18:03)
[2024-01-29] MEDS: ROCEPHIN 1000 MG IV (19:42)
[2024-01-29] MEDS: STERILE WATER FOR INJECTION 10 ML IV (19:42)
[2024-01-30] MEDS: NSS 1000 IV (00:17)
--- NOTE | 2024-01-30 00:19 | PTCARENOTE ---
attempted to wean patient to room air, denies SOB, pulse ox checked 85-86%. Placed back on 2L
[2024-01-30 03:00] VITALS: BP 147/91
[2024-01-30] MEDS: NICODERM TRANSDERMAL 14 MG TRANSDERM (08:16)
[2024-01-30] MEDS: CLARITIN 10 MG PO (08:16)
[2024-01-30] MEDS: MUCINEX 1200 MG PO (08:17)
[2024-01-30] MEDS: ZITHROMAX 500 MG PO (08:17)
[2024-01-30] MEDS: FLOMAX 0.4 MG PO (08:18)
[2024-01-30 08:27] VITALS: BP 151/96
[2024-01-30] MEDS: DUONEB 3 ML INH ×2 (08:45→12:05)
[2024-01-30 08:54] LABS: % Basophils 0.1 % (0-2); % Immature Granulocytes 0.8 % (0-0.5); % Lymphocytes 11.5 % (20.5-51.1); % Monocytes 6.7 % (1.7-9.3); % Neutrophils 80.9 % (42.2-75.2); Absolute Immature Granulocytes 0.1 10^3/uL (0-0.05); Absolute Lymphocytes 1.2 10^3/uL (1.2-3.4); Absolute Monocytes 0.7 10^3/uL (0.1-0.6); Absolute Neutrophils 8.1 10^3/uL (1.4-6.5); Hematocrit 45.8 % (39.0-52.0); Hemoglobin 15.5 g/dL (13.0-18.0); Mean Corp Hgb Conc. 33.8 g/dL (33.0-37.0); Mean Corpuscular Hgb 31.1 pg (27.0-31.0); Mean Platelet Volume 10.2 fL (7.4-10.4); Nucleated Red Blood Cells % 0 % (-); Platelet Count 250 10^3/uL (130-400); Red Blood Cell Count 4.98 10^6/uL (4.70-6.10); Red Cell Dist. Width 11.8 % (11.5-14.5)
[2024-01-30 09:17] LABS: Blood Urea Nitrogen 17 mg/dl (9-20); Calcium 9.5 mg/dl (8.4-10.2); Carbon Dioxide 32 mmol/L (22-30); Chloride 103 mmol/L (98-107); Estimated Creatinine Clearance > 125 ml/min; Glucose 98 mg/dl (70-99); Potassium 5.3 mmol/L (3.5-5.1); Sodium 141 mmol/L (135-145); eGFR > 60.00
--- NOTE | 2024-01-30 09:52 | W.PN.PUL.V3 ---
Today's Communication / Plan
-
Assess discharge supplemental oxygen needs
Finite course of antibiotics
Mucolytic's
Change Decadron to prednisone with taper
Outpatient pulmonary follow-up
Assessment
-
63-year-old smoking male with a history of probable COPD as well as BPH who presented with increasing shortness of breath, productive cough, fevers and chills found to have pneumonia and CT chest shows possible pulmonary embolism as well-pulmonary
was consulted for pneumonia, cigarette smoking, possible pulmonary embolism 01/29/2024.
Jtrlvehle-igjfwovdt-wqnxgolx
COPD with acute exacerbation
Possible left lower lobe pulm embolism-suspect artifact-low clinical suspicion-repeat CT chest pending
Polycythemia-initial hemoglobin 18.7-with hydration 16.4
Hyperkalemia
Leukocytosis
Mild hyperglycemia
Conditions present prior to admission:
Cigarette smoker.
COPD-on Trelegy by primary.
BPH.
Plan
Respiratory decompensation likely due to underlying COPD with subsequent community-acquired pneumonia
CT chest reviewed-suspect artifact-historically low clinical suspicion
Repeat CT chest 01/29/2024-no pulmonary embolism, moderate to severe changes of emphysema, focal areas of pneumonia
Supplemental oxygen as needed
Assess discharge supplemental oxygen needs-told patient he might require oxygen temporarily at the time of discharge-to have rest and exercise oximetry on room air 01/30/2024
Incentive spirometry encouraged
Mucolytics as needed
Aspiration precautions per protocol
Cultures reviewed s
Sputum culture 01/26/2024-usual respiratory margaret
Influenza negative
Empiric antibiotics-ceftriaxone and azithromycin-finite course
Follow radiographically
Follow leukocytosis
Follow hemoglobin-now normal after hydration
If polycythemia persists further workup for primary versus secondary could ensue in the outpatient setting
Monitor blood sugar
Insulin supplementation as needed
Smoking cessation counseling provided and will be ongoing
Nicotine patch
DVT prophylaxis-currently on Lovenox
Nutrition
Increase activity
With discharge on triple therapy-Trelegy or Breztri or other combination insurance allows in addition to home nebulizer, potentially oxygen and prednisone taper
Outpatient pulmonary vgxvwp-tr-igpyhtxg need for yearly low-dose lung cancer screening CT, PFTs, inhaler management and ongoing smoking cessation counseling
Diagnostic data:
Chest x-ray 01/25/2024-right lower lobe pneumonia
CT chest 01/28/2024-suspected left lower lobe pulmonary artery embolism versus artifact, patchy areas of interstitial airway disease suggesting pneumonia in the right middle lobe and right lower lobe,
Subjective Data
-
Date of Service:
Date of Service: January 30, 2024
Chief Complaint: Pulmonary Follow Up and Dyspnea Follow Up
Subjective:
Feels improved, no complaints of worsening shortness of breath, still has some wheezing, minimal cough, no chest pain or abdominal pain
Review of Systems
General: Other (Per HPI)
Objective Data
Data Reviewed
Vital Signs / I&O:
Vital Signs
Temp Pulse Resp BP Pulse Ox
98.0 F 95 18 151/96 94
01/30/24 08:27 01/30/24 08:48 01/30/24 08:48 01/30/24 08:27 01/30/24 09:25
Intake and Output
01/29/24 01/30/24 01/31/24
06:59 06:59 06:59
Intake Total 2160 / 2160 960 / 960
Balance 2160 / 2160 960 / 960
SaO2: 94
Nasal Cannula flow liters per minute: 2
Physical Exam
General: Respiratory Distress (n) and Comfortable
HEENT: Normocephalic, Anicteric and Moist Mucous Membranes
Cardiovascular: Regular Rhythm
Respiratory: Clear (Diminished breath sounds and prolonged expiratory time e), Wheeze (Expiratory), Crackles (Rare basilar), Rhonchi (n), Non-Labored Respirations, Accessory Resp Muscle Use (n) and Stridor (n)
GI: Soft, Non Distended and Non Tender
Neurology: Awake, Alert and No Motor Deficits
Skin: Warm, Good Color, Cyanosis (n), Jaundice (n) and Rash (n)
Labs/Micro/Reports
Lab Data
01/30/24 07:57
01/30/24 07:57
Microbiology
01/25/24 18:07 Blood/Venous Blood Culture - Preliminary
No Growth in 4 days- Final report to follow
01/25/24 18:07 Blood/Venous Blood Culture - Preliminary
No Growth in 4 days- Final report to follow
01/26/24 08:48 Sputum Respiratory Culture - Final
Usual Respiratory Margaret
01/26/24 08:48 Sputum Gram Stain - Final
[2024-01-30] MEDS: LOKELMA 10 GRAM PO (10:32)
[2024-01-30 11:00] VITALS: BP 153/94
[2024-01-30] MEDS: DELTASONE 50 MG PO (11:07)
--- NOTE | 2024-01-30 11:12 | W.PN.HOSP.TC ---
Today's Communication/Plan
-
po steroids
op pulm f/u
tobacco cessation
Assessment / Plan
Assessment / Plan
General: Well Developed and No Apparent Distress
HEENT: Normocephalic, Atraumatic and Moist Mucous Membranes
Respiratory: mild wheezing-significant improvement
Cardiac: Regular Rhythm and S1/S2; Negative Murmur, Rub or Gallop
GI: Soft, Nontender, Nondistended and Normal Bowel Sounds; Negative Organomegaly
Musculoskeletal: No Clubbing, No Cyanosis and No Edema
Skin: Negative Rash
Neuro: Awake, Alert, Oriented, AO x 3, No Motor Deficits and Nonfocal/Grossly Intact
Psych: Calm
# Sepsis (leukocytosis, fever, tachycardia, tachypnea) secondary to right lower lobe pneumonia
-COVID and influenza negative
-Blood cultures neg so far
-Check sputum culture in lab -usual margaret
-DC IVF.
-Ceftriaxone/azithromycin completed 5d course
-repeat CXR in 4-6 week to assess for resolution
# Acute COPD exacerbation with moderate to severe emphysema
-DuoNebs every 6 hours
-Dexamethasone dose decreased further to 4mg q12h and po prednisone taper on ddc.
-mucinex
-restart trelegy ellipta
-Pulm eval-patient is stable close pulmonary follow-up
# Acute hypoxic respiratory insufficiency likely combination of pneumonia and suspected COPD exacerbation
-Wean oxygen as tolerated. see individual treatment plan as above. Did not qualify for home oxygenation. Now on room air.
#Suspected left lower lobe artifact
-d/w with radiology recommending repeat CT chest.
-started on prophylactic Lovenox therapeutic dose
-DC further fluids. Creatinine stable.
-Repeat CT chest was negative for pulmonary embolism. Lovenox to therapeutic dose was discontinued.
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
# Hyperkalemia
-resolved
#Daily tobacco abuse
#Active Smoker 1 pack a day
-Nicotine patch
-Counseled on complete cessation. Patient said he will stop smoking moving forward.
BPH
-Continue tamsulosin
Mild hyperkalemia likely 2/2 steroids
K at 5.3 s/p dose of lokelma
repeat BMP as OP
not on any K sparing diuretics/ESTRELLA/ARB etc.
Mild elevated bp
pt states due to anxiety and not getting much sleep
understands to f/u with pcp
Full code
DVT prophylaxis�lovenox
d/w with pulmonary.
More than 30 minutes spent in discharge including
Final examination of the patient
Summarizing hospital stay
Instructions for continuing care to all relevant caregivers
Preparation of discharge records, prescriptions, and referral forms
Total time spent (in minutes): 53
Anticipated Discharge: Today
Subjective/Interval History
-
Date of Service: January 30, 2024
feeling alot better
ambulating
worked with RT earlier and O2 did not drop and did not qualify for home oxygen
Objective Data
-
Labs:
Laboratory Results
01/30/24
07:57
WBC 10.0
Hgb 15.5
Hct 45.8
Plt Count 250
Sodium 141
Potassium 5.3 H
Chloride 103
Carbon Dioxide 32 H
BUN 17
Creatinine 0.6 L
Glucose 98
Calcium 9.5
Vital Signs:
Vital Signs
Temp Pulse Resp BP Pulse Ox
98.0 F 95 18 151/96 94
01/30/24 08:27 01/30/24 08:48 01/30/24 08:48 01/30/24 08:27 01/30/24 09:52
I&O
01/29/24 01/30/24 01/31/24
06:59 06:59 06:59
Intake Total 2160 / 2160 960 / 960
Balance 2160 / 2160 960 / 960
--- NOTE | 2024-01-30 11:12 | CM ---
Patient seen at bedside.
02 home assessment this am by respiratory.
RA 89% - 250 ft - does not qualify for home 02
tt hospitalist/pulmonary
PLAN: Home, no needs
to transport.
--- NOTE | 2024-01-30 11:20 | W.DCSUMMARY ---
Discharge Summary
Discharge Data
Date of Admission: 01/25/24
Date of Discharge: 01/30/24
-
Pending Results: No
Hospital Course
63-year-old male past medical history of tobacco abuse daily basis, BPH is presenting from home with complaints of shortness of breath and cough. Patient was found to be septic secondary to community-acquired pneumonia. Patient completed
antibiotics in the hospital. Patient was negative for COVID influenza. Blood cultures were negative. Sputum culture with normal margaret. Patient was also started on IV steroids and bronchodilators. Pulm evaluated the patient. Patient was also
hypoxic. Oxygen was able to be weaned off slowly. Patient did not qualify for home oxygenation. IV steroids were transitioned to p.o. taper regimen on discharge. Patient was tachycardic and hypoxic and underwent CT chest on 01/27 which showed
possible pulmonary embolism versus artifact. Patient with was started on therapeutic Lovenox dose. Patient creatinine was stable after [address] chest was negative for pulmonary embolism. Patient creatinine remained stable. Patient was
eval by pulmonary as he does not have outpatient accounting consultant. Patient was counseled multiple times on complete tobacco cessation and he verbalized understanding. Patient will be discharged home as he was stable on room air with p.o. prednisone
taper regimen and nebulizer.
Discharge Plan
-
Patient Disposition: Home (Routine Discharge)
Discharge Diagnosis/Procedures: Sepsis due to acuity acquired pneumonia
Acute COPD exacerbation with moderate to severe emphysema
Acute hypoxic respiratory insufficiency
Secondary polycythemia
Hyperkalemia
Daily tobacco abuse
Condition: Fair
Diet: As tolerated
Activity: As tolerated
Driving Restrictions: As prior to admission
Blood Work: BMP in 3-4 days via primary doctor.
Instructions: Quitting smoking for adults, Exacerbation of COPD (DC), Harmful health effects of smoking
Referrals:
Warren Noriega MD [Active] -
(Dr. Noriega or nurse practitioner
Needs PFTs, ongoing smoking cessation counseling, and yearly low-dose lung cancer screening CT)
UNKNOWN - PT DOES,NOT KNOW [Family Provider] - (Recommend BMP and discussed about elevated blood pressure)
Prescriptions:
New
guaifenesin 600 mg Tablet Extended Release 12hr
600 mg PO Q12 Qty: 14 0RF
prednisone 10 mg Tablet
See Rx Instructions .ROUTE .COMPLEX Qty: 30 0RF
Rx Instructions:
Take By Mouth:
40 mg daily x3 days, 30 mg daily x3 days,
20 mg daily x3 days, 10 mg daily x3 days.
ipratropium-albuterol 0.5 mg-3 mg(2.5 mg base)/3 mL Solution For Nebulization
3 ml inhalation R Q4HPRN PRN (Reason: shortness of breath/wheezing) Qty: 90 0RF
(DME) nebulizers [Compact Compressor Nebulizer] Misc
See Rx Instructions .Route Qty: 1 0RF
Rx Instructions:
As directed
Continued
tamsulosin [Flomax] 0.4 mg Capsule
0.4 mg PO DAILY
fexofenadine-pseudoephedrine [Latesha-D 24 Hour] 180-240 mg Tablet Extended Release 24 Hr
1 tab PO DAILY
Trelegy Ellipta
1 puff inhalation DAILY
Patient Comments:
pt does not know mg
Discharge Orders:
Discharge Patient (As Directed); Ordered 01/30/24
Ordered By: Vincenzo Gallardo
Discharge Date and Time
Discharge Date/Time: 01/30/24 12:21
Print Language: JAPANESE
== END 2024-01-30 12:21 | disposition home or self-care (01) | DRG 871 ==
LOC: 2 NORTH 21:38
PROVIDERS: Physician Assistant; ADMITTING PHYSICIAN Hospitalist; ATTENDING PHYSICIAN Hospitalist; CONSULT PHYSICIAN Internal Medicine Critical Care Medicine; EMERGENCY PHYSICIAN Emergency Medicine
DX: A41.9 Sepsis, unspecified organism (principal); J18.9 Pneumonia, unspecified organism; J44.0 Chronic obstructive pulmonary disease with (acute) lower respiratory infection; J44.1 Chronic obstructive pulmonary disease with (acute) exacerbation; N40.0 Benign prostatic hyperplasia without lower urinary tract symptoms; F17.210 Nicotine dependence, cigarettes, uncomplicated; Z20.822 Contact with and (suspected) exposure to COVID-19; E86.1 Hypovolemia; E87.5 Hyperkalemia; D75.1 Secondary polycythemia; T38.0X5A Adverse effect of glucocorticoids and synthetic analogues, initial encounter; J43.9 Emphysema, unspecified; R06.89 Other abnormalities of breathing; R09.02 Hypoxemia; Z88.6 Allergy status to analgesic agent; Z79.51 Long term (current) use of inhaled steroids
CPT/HCPCS: 71046; 71275; 80048; 80053; 83605; 85025; 87040; 87070; 87205; 87502; 87811; 94640; 96374; 96375; 99285; 99406; Q9967